=== PATIENT | female | born 1950 | race Caucasian/White ===

== ENCOUNTER 2016-06-14 07:02 | Outpatient (CLI) | payer MEDICARE ==
[2016-06-14 07:25] LABS: #Basophils 0.1 thou/uL (0.0-0.2); #Eosinphils 0.1 thou/uL (0.0-0.7); #Lymphocytes 2.3 thou/uL (1.20-3.40); #Monocytes 0.7 thou/uL (0.11-0.59); #Neutrophils 4.5 thou/uL (1.40-6.50); %Basophils 1.1 % (0.0-1.0); %Eosinophils 1.7 % (0.0-10.0); %Lymphocytes 29.6 % (21.0-51.0); %Monocytes 9.4 % (0.0-10.0); %Neutrophils 58.3 % (42.0-75.0); Hemoglobin 15.2 g/dL (12.0-16.0); Mean Corpuscular HGB CONC 33.5 g/dL (32.0-36.0); Mean Corpuscular Hemoglobin 32.3 pg (27.0-31.0); Mean Corpuscular Volume 96.6 fl (81.0-99.0); Mean Platelet Volume 8.7 fL (7.4-10.4); Platelet Count 279 thou/uL (130-400); RBC Distribution Width 12.7 % (11.5-14.5); Red Blood Cell (RBC) Count 4.71 mill/uL (4.20-5.40); White Blood Cell (WBC) Count 7.8 thou/uL (4.8-10.8)
[2016-06-14 07:49] LABS: Anion Gap 16 mmol/L (10-20); BUN (Urea Nitrogen) 17 mg/dL (9.8-20.1); Calc. Creatinine Clearance 0 mL/min (70-130); Calcium 10.2 mg/dL (7.8-10.44); Carbon Dioxide 28 mmol/L (23-31); Chloride 99 mmol/L (98-107); Estimated GFR-MDRD 63; Glucose 87 mg/dL (80-115); Potassium 4.1 mmol/L (3.5-5.1); Sodium 139 mmol/L (136-145)
[2016-06-14 11:12] LABS: Bilirubin Negative (Negative); Blood, Urine Negative (Negative); Clarity Clear (Clear); Glucose, Urine (Dipstick) Negative (Negative); Leukocyte Trace (Negative); Nitrite Negative (Negative); Protein, Urine (Dipstick) Negative (Neg-Trace); Urobilinogen 0.2 mg/dL (0.2-1.0); pH, Urine 5.5 (5.0-9.0)
[2016-06-14 11:13] LABS: RBC/HPF 0-3 HPF (0-3); WBC/HPF 0-3 HPF (0-3)
[2016-06-14 11:14] LABS: Bacteria/HPF Rare-Few HPF (None Seen); Squamous Epithelial 0-3 HPF (0-3)
== END 2016-06-14 07:03 ==
LOC: MADLABBHPM 07:02
PROVIDERS: ATTEND Family Medicine
DX: N18.3 Chronic kidney disease, stage 3 (moderate) (principal)
CPT/HCPCS: 36415; 80048; 81001; 85025

== ENCOUNTER 2016-07-11 07:04 | Outpatient (CLI) | payer MEDICARE ==
[2016-07-11 08:05] LABS: Anion Gap 17 mmol/L (10-20); BUN (Urea Nitrogen) 11 mg/dL (9.8-20.1); Calc. Creatinine Clearance 0 mL/min (70-130); Calcium 9.9 mg/dL (7.8-10.44); Carbon Dioxide 29 mmol/L (23-31); Chloride 96 mmol/L (98-107); Estimated GFR-MDRD 68; Glucose 89 mg/dL (80-115); Potassium 3.6 mmol/L (3.5-5.1); Sodium 138 mmol/L (136-145)
[2016-07-11 19:43] LABS: Creatinine, Urine 35.98 mg/dL (47-110); Protein, Urine Random Quant Less than 10 mg/dL
== END 2016-07-11 07:05 | disposition home or self-care (01) ==
LOC: MADLAB 07:04
PROVIDERS: ATTEND Internal Medicine Nephrology
DX: I12.9 Hypertensive chronic kidney disease with stage 1 through stage 4 chronic kidney disease, or unspecified chronic kidney disease (principal); N18.3 Chronic kidney disease, stage 3 (moderate)
CPT/HCPCS: 80048; 82306; 82570; 83970; 84156

== ENCOUNTER 2017-01-11 07:13 | Outpatient (CLI) | payer MEDICARE ==
[2017-01-11 07:36] LABS: #Basophils 0.1 thou/uL (0.0-0.2); #Eosinphils 0.2 thou/uL (0.0-0.7); #Lymphocytes 2.5 thou/uL (1.20-3.40); #Monocytes 0.6 thou/uL (0.11-0.59); #Neutrophils 3.9 thou/uL (1.40-6.50); %Basophils 1.1 % (0.0-1.0); %Eosinophils 2.3 % (0.0-10.0); %Lymphocytes 34.2 % (21.0-51.0); %Monocytes 8.6 % (0.0-10.0); %Neutrophils 53.8 % (42.0-75.0); Hemoglobin 14.5 g/dL (12.0-16.0); Mean Corpuscular HGB CONC 31.6 g/dL (32.0-36.0); Mean Corpuscular Hemoglobin 30.9 pg (27.0-31.0); Mean Platelet Volume 8.9 fL (7.4-10.4); Platelet Count 242 thou/uL (130-400); RBC Distribution Width 12.7 % (11.5-14.5); Red Blood Cell (RBC) Count 4.68 mill/uL (4.20-5.40); White Blood Cell (WBC) Count 7.2 thou/uL (4.8-10.8)
[2017-01-11 07:56] LABS: ALT (SGPT) 15 U/L (8-55); AST (SGOT) 15 U/L (5-34); Albumin 4.2 g/dL (3.4-4.8); Alkaline Phosphatase 101 U/L (40-150); Anion Gap 15 mmol/L (10-20); BUN (Urea Nitrogen) 18 mg/dL (9.8-20.1); Bilirubin, Direct 0.2 mg/dL (0.1-0.3); Bilirubin, Total 0.7 mg/dL (0.2-1.2); Calc. Creatinine Clearance 0 mL/min (70-130); Calcium 10.2 mg/dL (7.8-10.44); Carbon Dioxide 29 mmol/L (23-31); Chloride 100 mmol/L (98-107); Cholesterol 228 mg/dl (< 200 Desired); Estimated GFR-MDRD 58; Glucose 89 mg/dL (80-115); HDL Cholesterol 76 mg/dL (>60 Neg Risk); LDL Cholesterol, Calculated 124 mg/dL; Potassium 4.3 mmol/L (3.5-5.1); Protein, Total 7.6 g/dL (6.0-8.3); Sodium 140 mmol/L (136-145); Triglycerides 142 mg/dL (Less than 150)
== END 2017-01-11 07:14 | disposition home or self-care (01) ==
LOC: MADLABBHPM 07:13
PROVIDERS: ATTEND Family Medicine
DX: I12.9 Hypertensive chronic kidney disease with stage 1 through stage 4 chronic kidney disease, or unspecified chronic kidney disease (principal); N18.3 Chronic kidney disease, stage 3 (moderate)
CPT/HCPCS: 36415; 80048; 80061; 80076; 85025

== ENCOUNTER 2017-03-06 07:16 | Outpatient (CLI) | payer MEDICARE ==
[2017-03-06 08:07] LABS: Anion Gap 13 mmol/L (10-20); BUN (Urea Nitrogen) 14 mg/dL (9.8-20.1); Calc. Creatinine Clearance 0 mL/min (70-130); Calcium 9.5 mg/dL (7.8-10.44); Carbon Dioxide 30 mmol/L (23-31); Chloride 97 mmol/L (98-107); Estimated GFR-MDRD 77; Glucose 87 mg/dL (80-115); Potassium 3.9 mmol/L (3.5-5.1); Sodium 136 mmol/L (136-145)
== END 2017-03-06 07:17 | disposition home or self-care (01) ==
LOC: MADLAB 07:16
PROVIDERS: ATTEND Internal Medicine Nephrology
DX: N18.3 Chronic kidney disease, stage 3 (moderate) (principal)
CPT/HCPCS: 36415; 80048

== ENCOUNTER 2017-04-30 09:56 | Outpatient (CLI) | payer MEDICARE ==
--- NOTE | 2017-04-30 12:10 | RAD ---
LEFT KNEE FOUR VIEWS: HISTORY: A 66-year-old female with left knee pain since Jair, without trauma. FINDINGS: No evidence for acute fracture or dislocation or other significant acute process. IMPRESSION: Unremarkable left knee. POS: [facility]
== END 2017-04-30 09:57 | disposition home or self-care (01) ==
LOC: MADRAD 09:56
PROVIDERS: ATTEND Family Medicine
DX: M25.562 Pain in left knee (principal)

== ENCOUNTER 2018-01-01 07:27 | Outpatient (CLI) | payer MEDICARE ==
[2018-01-01 07:57] LABS: Anion Gap 17 mmol/L (10-20); BUN (Urea Nitrogen) 20 mg/dL (9.8-20.1); Calc. Creatinine Clearance 0 mL/min (70-130); Calcium 9.8 mg/dL (7.8-10.44); Carbon Dioxide 27 mmol/L (23-31); Chloride 100 mmol/L (98-107); Estimated GFR-MDRD 73; Glucose 91 mg/dL (80-115); Potassium 4.1 mmol/L (3.5-5.1); Sodium 140 mmol/L (136-145)
== END 2018-01-01 07:28 | disposition home or self-care (01) ==
LOC: MADLABBHPM 07:27
PROVIDERS: ATTEND Family Medicine
DX: N18.3 Chronic kidney disease, stage 3 (moderate) (principal)
CPT/HCPCS: 36415; 80048

== ENCOUNTER 2018-11-28 07:30 | Outpatient (CLI) | payer MEDICARE ==
[2018-11-28 14:18] LABS: ALT (SGPT) 15 U/L (8-55); AST (SGOT) 15 U/L (5-34); Albumin 4.5 g/dL (3.4-4.8); Alkaline Phosphatase 86 U/L (40-150); Anion Gap 11 mmol/L (10-20); BUN (Urea Nitrogen) 20 mg/dL (9.8-20.1); Bilirubin, Direct 0.3 mg/dL (0.1-0.3); Bilirubin, Total 0.6 mg/dL (0.2-1.2); Calc. Creatinine Clearance 0 mL/min (70-130); Calcium 9.8 mg/dL (7.8-10.44); Carbon Dioxide 35 mmol/L (23-31); Cardiac Risk 2.5 (Less than 4.5); Chloride 101 mmol/L (98-107); Cholesterol 218 mg/dl (< 200 Desired); Estimated GFR-MDRD 63; Glucose 92 mg/dL (80-115); HDL Cholesterol 87 mg/dL (>60 Neg Risk); LDL Cholesterol, Calculated 113 mg/dL; Protein, Total 7.7 g/dL (6.0-8.3); Sodium 143 mmol/L (136-145); Triglycerides 90 mg/dL (Less than 150)
== END 2018-11-28 07:31 | disposition home or self-care (01) ==
LOC: MADLABBHPM 07:30
PROVIDERS: ATTEND Family Medicine
DX: I12.9 Hypertensive chronic kidney disease with stage 1 through stage 4 chronic kidney disease, or unspecified chronic kidney disease (principal); N18.3 Chronic kidney disease, stage 3 (moderate)
CPT/HCPCS: 36415; 80048; 80061; 80076

== ENCOUNTER 2020-08-30 07:29 | Outpatient (CLI) | payer MEDICARE ==
[2020-08-30 08:02] LABS: ALT (SGPT) 21 U/L (8-55); AST (SGOT) 17 U/L (5-34); Albumin 4.2 g/dL (3.4-4.8); Alkaline Phosphatase 88 U/L (40-110); Anion Gap 13 mmol/L (10-20); BUN (Urea Nitrogen) 17 mg/dL (9.8-20.1); Bilirubin, Total 0.6 mg/dL (0.2-1.2); Calc. Creatinine Clearance 0 mL/min (70-130); Calcium 9.6 mg/dL (7.8-10.44); Carbon Dioxide 33 mmol/L (23-31); Cardiac Risk 2.8 (Less than 4.5); Chloride 102 mmol/L (98-107); Cholesterol 204 mg/dl (< 200 Desired); Globulin 2.8 g/dL (2.4-3.5); Glucose 102 mg/dL (80-115); HDL Cholesterol 72 mg/dL (>60 Neg Risk); LDL Cholesterol, Calculated 113 mg/dL; Potassium 4.5 mmol/L (3.5-5.1); Sodium 143 mmol/L (136-145); Triglycerides 95 mg/dL (Less than 150)
[2020-08-30 08:12] LABS: Hemoglobin 14.8 g/dL (12.0-16.0); Mean Corpuscular HGB CONC 31.2 g/dL (32.0-36.0); Mean Corpuscular Hemoglobin 30.8 pg (27.0-31.0); Mean Corpuscular Volume 98.5 fL (78.0-98.0); Mean Platelet Volume 8.4 fL (7.4-10.4); Platelet Count 203 thou/uL (130-400); RBC Distribution Width 12.3 % (11.5-14.5); White Blood Cell (WBC) Count 5.8 thou/uL (4.8-10.8)
[2020-08-30 08:33] LABS: Lymphocytes 11 % (21-51); MDiff Complete? YES; Manual Diff?? YES; Reactive Lymphocytes 26 % (0-10)
[2020-08-30 08:34] LABS: Eosinophils 2 % (0-10); Monocytes 1 % (0-10); Neutrophil 62 % (42-75); Platelet Morphology Comment Appears Adequate; RBC Morphology Normal
== END 2020-08-30 07:30 | disposition home or self-care (01) ==
LOC: MADLAB 07:29
PROVIDERS: ATTEND Family Medicine
DX: E78.5 Hyperlipidemia, unspecified (principal); I10 Essential (primary) hypertension
CPT/HCPCS: 36415; 80053; 80061; 84443; 85025; 85060